=== PATIENT | male | born 1970 | race Caucasian/White ===

== ENCOUNTER 2017-05-30 11:00 | Outpatient (CLI) | payer MEDICAID ==
--- NOTE | 2017-05-30 16:29 | Mammography Report ---
DATE OF SERVICE: 05/30/2017 DIGITAL DIAGNOSTIC BILATERAL MAMMOGRAM: 05/30/2017 CLINICAL INDICATION: Right breast pain. TECHNIQUE: Bilateral CC and MLO views. Markers were placed at the site of maximal tenderness in the right periareolar breast. This is the patient's baseline mammogram. FINDINGS: The breasts demonstrate fatty replacement bilaterally. There is mild asymmetric gynecomastia in the right retroareolar region. No suspicious masses, clustered microcalcifications, or regions of architectural distortion are identified. IMPRESSION: BENIGN FINDINGS, WITH ASYMMETRIC GYNECOMASTIA. RECOMMENDATION: CONTINUED CLINICAL SURVEILLANCE. BIRADS CATEGORY 2-BENIGN FINDINGS. STANDARD QUALIFYING STATEMENTS: 1. This examination was reviewed with the aid of Computer-Aided Detection (CAD). 2. A negative or benign imaging report should not delay biopsy if clinically suspicious findings are present. Consider surgical consultation if warranted. More than 5% of cancers are not identified by imaging. 3. Dense breasts may obscure an underlying neoplasm. TD: 05/30/2017 17:28
== END 2017-05-30 11:01 | disposition home or self-care (01) ==
LOC: DI 11:00
PROVIDERS: ATTEND Family Medicine
DX: N62 Hypertrophy of breast (principal)
CPT/HCPCS: 77066

== ENCOUNTER 2018-07-29 09:29 | Outpatient (CLI) | payer MEDICAID | END 2018-07-29 09:30 | disposition home or self-care (01) | LOC: LAB.F 09:29 | PROVIDERS: ATTEND Registered Nurse | DX: R53.83 Other fatigue (principal) | CPT/HCPCS: 36415; 84403 ==

== ENCOUNTER 2018-09-29 07:34 | Outpatient (CLI) | payer BC, MEDICAID | END 2018-09-29 07:35 | disposition home or self-care (01) | LOC: LAB.F 07:34 | PROVIDERS: ATTEND Registered Nurse | DX: R53.83 Other fatigue (principal) | CPT/HCPCS: 36415; 84403 ==

== ENCOUNTER 2019-01-22 07:44 | Outpatient (CLI) | payer BC, MEDICAID ==
--- NOTE | 2019-01-22 17:40 | XRAY Report ---
Reason: FOOT DROP LT M21.372 Procedure Date: 01/22/2019 Accession Number: [id number] / [id number] Procedure: XRS - Foot 3 View LT CPT Code: FULL RESULT: EXAM: LEFT FOOT RADIOGRAPHY EXAM DATE: 01/22/2019 07:53 AM. CLINICAL HISTORY: FOOT DROP LT M21. 372. Left foot swelling, purple toes. COMPARISON: None. TECHNIQUE: 3 views. FINDINGS: Bones: Tiny plantar calcaneal spur. No fractures or bone lesions. Joints: Normal. No subluxations. Soft Tissues: Normal. No soft tissue swelling. IMPRESSION: Negative left foot radiography. RADIA
== END 2019-01-22 07:45 | disposition home or self-care (01) ==
LOC: DI.S 07:44
PROVIDERS: ATTEND Family Medicine
DX: M21.372 Foot drop, left foot (principal)

== ENCOUNTER 2020-06-23 11:55 | Outpatient (CLI) | payer BC, MEDICAID ==
[2020-06-23 15:41] LABS: BASOPHILS # (AUTO) 0.1 10^3/uL (0.0-0.1); BASOPHILS % (AUTO) 1.3 %; EOSINOPHILS # (AUTO) 0.2 10^3/uL (0.0-0.7); EOSINOPHILS % (AUTO) 2.7 %; HGB - HEMOGLOBIN 15.6 g/dL (14.0-18.0); MEAN CORPUSCULAR HEMOGLOBIN 30.8 pg (27.0-31.0); MEAN CORPUSCULAR HGB CONC 34.7 g/dL (32.0-36.0); MEAN CORPUSCULAR VOLUME 88.7 fL (80.0-94.0); MEAN PLATELET VOLUME 10.4 fL (7.4-11.4); MONOCYTES # (AUTO) 0.6 10^3/uL (0.0-1.0); MONOCYTES % (AUTO) 7.5 %; NEUTROPHILS # (AUTO) 4.2 10^3/uL (1.5-6.6); NEUTROPHILS % (AUTO) 51.1 %; PLT - PLATELET COUNT 283 10^3/uL (130-450); RED BLOOD COUNT 5.06 10^6/uL (4.70-6.10); RED CELL DISTRIBUTION WIDTH 12.4 % (12.0-15.0); WHITE BLOOD COUNT 8.2 x10^3/uL (4.8-10.8)
[2020-06-23 16:06] LABS: ALBUMIN/GLOBULIN RATIO 1.6 (1.0-2.2); ALKALINE PHOSPHATASE 70 IU/L (42-121); ALT ALANINE AMINOTRANSFERASE 62 IU/L (10-60); AST ASPARTATE AMINOTRANSFERASE 38 IU/L (10-42); BILIRUBIN,TOTAL 1.1 mg/dL (0.2-1.0); BUN - BLOOD UREA NITROGEN 13 mg/dL (6-20); CALCIUM 9.7 mg/dL (8.5-10.3); CARBON DIOXIDE - CO2 27 mmol/L (21-32); CHLORIDE 100 mmol/L (101-111); CHOL/HDL RATIO 5.4 (<5.0); CHOLESTEROL 199 mg/dL; CREATININE 0.9 mg/dL (0.6-1.2); GLUCOSE 155 mg/dL (70-100); HDL CHOLESTEROL 37 mg/dL; LDL CHOLESTEROL,CALCULATED 88 mg/dL; LDL/HDL RATIO 2.4 (<3.6); TOTAL PROTEIN 8.2 g/dL (6.7-8.2); VLDL CHOLESTEROL 74 mg/dL
[2020-06-23 20:31] LABS: HEMOGLOBIN A1c% 7.2 % (4.27-6.07)
== END 2020-06-23 11:56 | disposition home or self-care (01) ==
LOC: LAB 11:55
PROVIDERS: ATTEND Registered Nurse
DX: K76.0 Fatty (change of) liver, not elsewhere classified (principal); Z12.5 Encounter for screening for malignant neoplasm of prostate; R53.83 Other fatigue; E78.1 Pure hyperglyceridemia; E11.9 Type 2 diabetes mellitus without complications; I88.9 Nonspecific lymphadenitis, unspecified
CPT/HCPCS: 36415; 80053; 80061; 81599; 82043; 83036; 83721; 84153; 84403; 84443; 85025; 86308

== ENCOUNTER 2020-07-14 09:20 | Outpatient (CLI) | payer BC, MEDICAID ==
[2020-07-14 15:51] LABS: CREATININE,URINE 96.7 mg/dL; MICROALBUM/CREATININE RATIO,UR 9.3 ug/mg (<30.0); MICROALBUMIN,URINE 0.9 mg/dL (0-300.0)
== END 2020-07-14 09:21 | disposition home or self-care (01) ==
LOC: LAB.S 09:20
PROVIDERS: ATTEND Registered Nurse
DX: R53.83 Other fatigue (principal); E11.9 Type 2 diabetes mellitus without complications; E78.1 Pure hyperglyceridemia; K76.0 Fatty (change of) liver, not elsewhere classified
CPT/HCPCS: 82043; 82570

== ENCOUNTER 2021-04-10 12:34 | Emergency (ER) | payer BC, MEDICAID ==
--- NOTE | 2021-04-10 13:17 | ED Physician Documentation ---
PD HPI DYSPNEA - Stated complaint Stated Complaint: C+ BODY ACHE/FEVER - History obtained from History obtained from: Patient (50-year-old gentleman with history of type 2 diabetes and obesity became sick 2 days ago with fevers, chills, body aches, headache. There is no associated shortness of breath. His got ill at the same time. She tested positive for Covid with an antigen test. He is not short of breath.) Review of Systems Constitutional: reports: Fever, Chills, Myalgias, Fatigue Nose: reports: Rhinorrhea / runny nose Cardiac: denies: Chest pain / pressure, Palpitations Respiratory: reports: Cough. denies: Dyspnea PD PAST MEDICAL HISTORY - Past Medical History Endocrine/Autoimmune: Type 2 diabetes - Past Surgical History Past Surgical History: No - Present Medications Home Medications: Ambulatory Orders Medication Instructions Recorded Confirmed Gabapentin 900 mg PO DAILY 10/28/14 10/28/14 glipiZIDE [Glipizide] 10 mg PO BID 10/28/14 10/28/14 metFORMIN [Glucophage] 500 mg PO BID 10/28/14 10/28/14 Ibuprofen [Motrin] 800 mg PO Q8H PRN #30 tablet 10/29/14 Ondansetron Odt [Zofran] 4 mg TL Q6H PRN #10 tablet 10/29/14 Oxycodone HCl/Acetaminophen 1 - 2 each PO Q6H PRN #15 tablet 10/29/14 [Percocet 5-325 mg Tablet] Tamsulosin [Flomax] 0.4 mg PO DAILY #5 capsule 10/29/14 - Allergies Allergies/Adverse Reactions: Allergies Allergy/AdvReac Type Severity Reaction Status Date / Time lisinopril AdvReac Unknown Verified 04/10/21 13:24 - Social History Does the pt smoke?: No Smoking Status: Never smoker Does the pt drink ETOH?: No Does the pt have substance abuse?: No - Immunizations Immunizations are current?: Yes - POLST Patient has POLST: No PD ED PE NORMAL - Vitals Vital signs reviewed: Yes - General General: Alert and oriented X 3, No acute distress - Cardiac Cardiac: RRR, No murmur - Respiratory Respiratory: No respiratory distress, Clear bilaterally - Abdomen Abdomen: Non tender - Neuro Neuro: Alert and oriented X 3, Normal speech Results - Vitals Vitals: Vital Signs - 24 hr 11/30/21 11/30/21 13:00 15:26 Temperature 37.4 C Heart Rate 106 H 103 H Respiratory 17 18 Rate Blood Pressure 130/85 H 130/87 H O2 Saturation 97 97 Oxygen O2 Source Room air - Labs Labs: Laboratory Tests 04/10/21 13:17 Nasal Adenovirus (PCR) NOT DETECTED Nasal B. parapertussis DNA (PCR) NOT DETECTED Nasal Coronavir 229E PCR NOT DETECTED Nasal Coronavir HKU1 PCR NOT DETECTED Nasal Coronavir NL63 PCR NOT DETECTED Nasal Coronavir OC43 PCR NOT DETECTED Nasal Enterovir/Rhinovir PCR NOT DETECTED Nasal Influenza B PCR NOT DETECTED Nasal Influenza A PCR NOT DETECTED Nasal Parainfluen 1 PCR NOT DETECTED Nasal Parainfluen 2 PCR NOT DETECTED Nasal Parainfluen 3 PCR NOT DETECTED Nasal Parainfluen 4 PCR NOT DETECTED Nasal RSV (PCR) NOT DETECTED Nasal B.pertussis DNA PCR NOT DETECTED Nasal C.pneumoniae (PCR) NOT DETECTED Dennis Human Metapneumo PCR NOT DETECTED Nasal M.pneumoniae (PCR) NOT DETECTED Nasal SARS-CoV-2 (PCR) DETECTED A PD MEDICAL DECISION MAKING - ED course ED course: Mab therapy for this patient with Covid was considered and discussed with the patient. The patient was provided the handout: ``Casirivimab plus Imdevimab Fact Sheet for Patients, Parents and Caregivers, and the information within was discussed with the patient. The patient was informed of alternatives prior to receiving Mab therapy. The patient was informed that these medications are unapproved drugs that are authorized for use under Emergency Use Authorization by the FDA. The patient will be monitored for at least 1 hour after infusion is complete. Departure - Departure Disposition: 01 Home, Self Care Clinical Impression: COVID-19 Condition: Good Instructions: ED Viral Syndrome Comments: You are seen today for Covid, confirmed positive. You need to quarantine for at least 12 more days per CDC guidelines. Return if worsening. You did receive Regeneron antibody therapy today. Forms: Activity restrictions
[2021-04-10 14:30] LABS: B. PARAPERTUSSIS- RESP PCR PAN NOT DETECTED; B. PERTUSSIS- RESP PCR PANEL NOT DETECTED; C. PNEUMONIAE- RESP PCR PANEL NOT DETECTED; CORONAVIRUS 229E-RESP PCR NOT DETECTED; CORONAVIRUS HKU1-RESP PCR NOT DETECTED; CORONAVIRUS NL63-RESP PCR NOT DETECTED; CORONAVIRUS OC43-RESP PCR NOT DETECTED; HUMAN METAPNEUMOVIRUS NOT DETECTED; INFLUENZA A- RESP PCR PANEL NOT DETECTED; INFLUENZA B - RESP PCR PANEL NOT DETECTED; M. PNEUMONIAE- RESP PCR PANEL NOT DETECTED; PARAINFLUENZA VIRUS 1 NOT DETECTED; PARAINFLUENZA VIRUS 2 NOT DETECTED; PARAINFLUENZA VIRUS 3 NOT DETECTED; PARAINFLUENZA VIRUS 4 NOT DETECTED; RHINOVIRUS/ENTEROVIRUS NOT DETECTED; RSV- RESP PCR PANEL NOT DETECTED
[2021-04-10 14:31] LABS: SARS-CoV-2 -RESP PCR PANEL DETECTED
[2021-04-10] MEDS ORDERED: ACETAMINOPHEN 325 MG TABLET PO STA (15:28)
[2021-04-10] MEDS ORDERED: CASIRIVIMAB/IMDEVIMAB 10 ML in SODIUM CHLORIDE 0.9% 50 ML IV ONE (15:30)
[2021-04-10 17:51] VITALS: BP 125/81
== END 2021-04-10 17:51 | disposition home or self-care (01) ==
LOC: ED 12:34
DX: U07.1 COVID-19 (principal); E11.9 Type 2 diabetes mellitus without complications; Z79.84 Long term (current) use of oral hypoglycemic drugs; E66.9 Obesity, unspecified; Z68.33 Body mass index [BMI] 33.0-33.9, adult
CPT/HCPCS: 0202U; 99284; A9270; J7040; M0243; Q0244

== ENCOUNTER 2021-09-13 10:29 | Outpatient (CLI) | payer MEDICAID ==
--- NOTE | 2021-09-13 11:13 | XRAY Report ---
PROCEDURE: Abdomen 2 View X-Ray INDICATIONS: HEMATOCHEZIA, GASTRITIS, ACUTE TECHNIQUE: 2 views of the abdomen were acquired. COMPARISON: FINDINGS: Surgical changes and devices: None. Bowel: No pneumoperitoneum. The bowel gas pattern is normal. Soft tissues: No masses; visualized solid organ contours appear normal in size. No suspicious abdom inal calcifications. Bones: No suspicious bony abnormalities. IMPRESSION: Normal study. Reviewed by: Leopoldo Story MD on 09/13/2021 11:11 AM PDT Approved by: Leopoldo Story MD on 09/13/2021 11:11 AM PDT Station ID: [id number]
[2021-09-13 14:37] LABS: BASOPHILS # (AUTO) 0.1 10^3/uL (0.0-0.1); BASOPHILS % (AUTO) 0.7 %; EOSINOPHILS # (AUTO) 0.1 10^3/uL (0.0-0.7); EOSINOPHILS % (AUTO) 1.2 %; HCT - HEMATOCRIT 44.1 % (42.0-52.0); HGB - HEMOGLOBIN 15.9 g/dL (14.0-18.0); LYMPHOCYTES # (AUTO) 2.4 10^3/uL (1.5-3.5); LYMPHOCYTES % (AUTO) 28.7 %; MEAN CORPUSCULAR HEMOGLOBIN 30.2 pg (27.0-31.0); MEAN CORPUSCULAR HGB CONC 36.1 g/dL (32.0-36.0); MEAN CORPUSCULAR VOLUME 83.7 fL (80.0-94.0); MEAN PLATELET VOLUME 10.7 fL (7.4-11.4); MONOCYTES # (AUTO) 0.6 10^3/uL (0.0-1.0); MONOCYTES % (AUTO) 6.8 %; NEUTROPHILS # (AUTO) 5.3 10^3/uL (1.5-6.6); NEUTROPHILS % (AUTO) 62.2 %; PLT - PLATELET COUNT 251 10^3/uL (130-450); RED BLOOD COUNT 5.27 10^6/uL (4.70-6.10); RED CELL DISTRIBUTION WIDTH 12.4 % (12.0-15.0); WHITE BLOOD COUNT 8.5 x10^3/uL (4.8-10.8)
[2021-09-13 15:42] LABS: ALBUMIN 4.4 g/dL (3.2-5.5); ALBUMIN/GLOBULIN RATIO 1.4 (1.0-2.2); ALKALINE PHOSPHATASE 73 IU/L (42-121); ALT ALANINE AMINOTRANSFERASE 42 IU/L (10-60); AST ASPARTATE AMINOTRANSFERASE 28 IU/L (10-42); BILIRUBIN,TOTAL 1.3 mg/dL (0.2-1.0); BUN - BLOOD UREA NITROGEN 14 mg/dL (6-20); CALCIUM 9.6 mg/dL (8.5-10.3); CARBON DIOXIDE - CO2 25 mmol/L (21-32); CHLORIDE 101 mmol/L (101-111); CHOL/HDL RATIO 5.4 (<5.0); CHOLESTEROL 201 mg/dL; CREATININE 0.9 mg/dL (0.6-1.2); GFR - MDRD 90 (>89); GLUCOSE 247 mg/dL (70-100); HDL CHOLESTEROL 37 mg/dL; POTASSIUM 4.1 mmol/L (3.5-5.0); SODIUM 135 mmol/L (135-145); TOTAL PROTEIN 7.5 g/dL (6.7-8.2); TRIGLYCERIDES 555 mg/dL
[2021-09-13 15:52] LABS: THYROID STIMULATING HORMONE 1.02 uIU/mL (0.34-5.60)
[2021-09-13 16:01] LABS: LDL CHOLESTEROL,DIRECT 83 mg/dL; LDLD/HDL RATIO 2.2 (<3.6)
== END 2021-09-13 10:30 | disposition home or self-care (01) ==
LOC: DI.S 10:29
PROVIDERS: ATTEND Registered Nurse
DX: K92.1 Melena (principal); K29.00 Acute gastritis without bleeding; E11.9 Type 2 diabetes mellitus without complications; E78.1 Pure hyperglyceridemia; Z12.5 Encounter for screening for malignant neoplasm of prostate; Z13.29 Encounter for screening for other suspected endocrine disorder; Z13.0 Encounter for screening for diseases of the blood and blood-forming organs and certain disorders involving the immune mechanism; E29.1 Testicular hypofunction
CPT/HCPCS: 36415; 80053; 80061; 83721; 84153; 84403; 84443; 85025; 87040

== ENCOUNTER 2021-09-14 08:00 | Outpatient (CLI) | payer MEDICAID | END 2021-09-14 23:59 | disposition home or self-care (01) | LOC: LAB.S 08:00 | PROVIDERS: ATTEND Registered Nurse | DX: K92.1 Melena (principal); K29.00 Acute gastritis without bleeding | CPT/HCPCS: 87045; 87046; 87177; 87328; 87427 ==

== ENCOUNTER 2021-09-26 11:37 | Emergency (ER) | payer MEDICAID, OTHER ==
--- OUTSIDE RECORDS SUMMARY | 2021-09-26 12:21 | EXTERNAL MEDICAL SUMMARY RPT | Continuity of Care Document ---
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 Encounters No information. Medications date description facility [id number] sulfamethoxazole-trimethoprim [facility] [id number] testosterone cypionate [facility] [id number] atorvastatin [facility] Prim javon [facility] Problems date description facility [id number] X-RAY EXAM ABDOMEN 2 VIEWS [facility] [id number] Tobacco use and exposure [facility] [id number] Thyroid disorder screening [facility] [id number] Testosterone, Serum (Total) Walk-In in [facility] Services [facility] [id number] Tenderness of right iliac fossa [facility] [id number] TSH WITH REFLEX TO FT4 [facility] [id number] Screening for thyroid disorders [facility] [id number] Screening for other and unspecified Wa lk-In Clinic Primary Care & deficiency anemia Ancillary Services [facility] [id number] Screening for malignant neoplasms of W alk-In Clinic Primary Care & prostate Ancillary Services [facility] [id number] Screening for malignant neoplasm of Wa [facility]In [facility] Primary Care & prostate Ancillary Services [facility] [id number] STOOL FOR O&P [facility] Prim javon Care & Ancillary Services [facility] 20210913 Right lower quadrant abdominal [facility] Primary Care & tenderness Ancillary Services [facility] [id number] Photosensitivity [facility] Prim javon Care & Ancillary Services [facility] 20210913 PSA, SCREENING [facility] Prim javon Care & Ancillary Services [facility] [id number] Other specified disorders of eye and W alk-In Clinic Primary Care & adnexa Ancillary Services [facility] 20210913 Other specified acute skin changes due [facility] Primary Care & to ultraviolet radiation Anc[facility] Servi [facility] [id number] Melena [facility] Care & Ancillary Services [facility] 20210913 LIPIDS SCREEN [facility] Care & Ancillary Services [facility] [id number] Hematochezia Walk-[facility] Care & Ancillary Services [facility] 20210913 Former smoker [facility] Care & Ancillary Services [facility] 20210913 Encounter for screening for other [facility] Primary Care & suspected endocrine disorder Ancillary S ervices [facility] [id number] Encounter for screening for malignant [facility] Primary Care & neoplasm of prostate [facility] 20210913 Encounter for screening for diseases of [facility] Primary Care & the blood and blood-forming organs and A ncillary Services [facility] certain disorders involving the immune mechanism 20210913 EGD flexible, transoral; diagnostic, W alk-In Clinic Primary Care & including collection of specimen(s) Anci ll[facility] [place] [id number] Details of drug misuse behavior [facility] 20210913 Culture, bact; stool, aerobic, addl Wa lk-In Clinic Primary Care & paths, isolation and presump isolates An cillary [facility] [place] [id number] COMPREHENSIVE METABOLIC PANEL [facility] 20210913 CBC W/Diff/Plt [facility] Care & Ancillary Services [facility] 20210913 Blood in stool [facility] Care & Ancillary Services [facility] 20210913 Blood Culture [facility] Care & Ancillary Services [facility] 20210913 Anemia screening [facility] Care & Ancillary Services [facility] 20210913 Alcohol use [facility] Care & Ancillary Services [facility] 20210913 Acute gastritis, without mention of Wa lk-In Clinic Primary Care & hemorrhage Ancillary Services [facility] 20210913 Acute gastritis [facility] Care & Ancillary Services [facility] 20210913 Acute gastritis without bleeding [facility] 20210913 Abdominal tenderness, right lower [facility] Primary Care & quadrant Ancillary Services shanel Procedures date description facility [id number] CBC W/Diff/Plt [facility] 20210913 PSA, SCREENING [facility] 20210913 LIPIDS SCREEN Walk[facility] & [facility] 20210913 COMPREHENSIVE METABOLIC PANEL Walk[facility]In [facility] 20210913 Testosterone, Serum (Total) Walk[facility] 20210913 Blood Culture Walk[facility]In [facility] & [facility] 20210913 TSH WITH REFLEX TO FT4 Walk[facility] Results test status date ordered by attending specimen jean-paul e THYROID_STIMULATING_HO unknown 20210913 unknown unknown unknown [facility] TSH unknown 20210913 unknown unknown unknown urea_nitrogen_blood unknown 20210913 unknown unknown unk nown Erythrocytes_volume_in unknown 20210913 unknown unknown unknown _Blood_by_Automated_cou nt Erythrocyte_distributi unknown 20210913 unknown unknown unknown on_width_Ratio_by_Autom ated_count MCV_Entitic_volume_by_ unknown 20210913 unknown unknown unknown Automated_count MCH_Entitic_mass_by_Au unknown 20210913 unknown unknown unknown tomated_count Platelets_volume_in_Bl unknown 20210913 unknown unknown unknown ood_by_Automated_count Platelet_mean_volume_E unknown 20210913 unknown unknown unknown ntitic_volume_in_Blood_ by_[facility] neutrophil_count_blood unknown 20210913 unknown unknown unknown monocyte_count_blood unknown 20210913 unknown unknown un known lymphocyte_count_blood unknown 20210913 unknown unknown unknown Hemoglobin_Mass_volume unknown 20210913 unknown unknown unknown _in_Blood eosinophil_count_blood unknown 20210913 unknown unknown unknown Basophils_volume_in_Bl unknown 20210913 unknown unknown unknown ood_by_Manual_count leukocyte_count_blood unknown 20210913 unknown unknown u nknown erythrocyte_RBC_count unknown 20210913 unknown unknown u nknown Leukocytes_volume_in_B unknown 20210913 unknown unknown unknown lood_by_Automated_count Glomerular_Filtration_ unknown 20210913 unknown unknown unknown rate platelet_count unknown 20210913 unknown unknown unknown hemoglobin_blood unknown 20210913 unknown unknown unknow n hematocrit_blood unknown 20210913 unknown unknown unknow n potassium_blood unknown 20210913 unknown unknown unknown Glomerular_filtration_r unknown 20210913 unknown unknown unknown ate_1.73_sq_M.predicted _among_non-blacks_Volum e_Rate_Area_in_Serum_Pl asma_or_Blood_by_Creati nine-based_formula_MDRD _ Hematocrit_Volume_Frac unknown 20210913 unknown unknown unknown tion_of_Blood_by_Automa ted_count triglyceride_serum_fas unknown 20210913 unknown unknown unknown ting bilirubin_serum_total unknown 20210913 unknown unknown u nknown alanine_aminotransfera unknown 20210913 unknown unknown unknown se_SGPT_serum carbon_dioxide_serum_t unknown 20210913 unknown unknown unknown otal aspartate_aminotransfe unknown 20210913 unknown unknown unknown rase_SGOT_serum prostate_specific_anti unknown 20210913 unknown unknown unknown gen protein_total_serum unknown 20210913 unknown unknown unk nown blood_glucose unknown 20210913 unknown unknown unknown potassium_blood unknown 20210913 unknown unknown unknown mean_corpuscular_volum unknown 20210913 unknown unknown unknown e_RBC Urea_nitrogen_Mass_vol unknown 20210913 unknown unknown unknown ume_in_Serum_or_Plasma globulin_serum unknown 20210913 unknown unknown unknown alkaline_phosphatase_s unknown 20210913 unknown unknown unknown trang Testosterone_Mass_volu unknown 20210913 unknown unknown unknown me_in_Serum_or_Plasma Sodium_Moles_volume_in unknown 20210913 unknown unknown unknown _Serum_or_Plasma Protein_Mass_volume_in unknown 20210913 unknown unknown unknown _Serum_or_Plasma Prostate_specific_Ag_M unknown 20210913 unknown unknown unknown ass_volume_in_Serum_or_ Plasma eosinophil_count_blood unknown 20210913 unknown unknown unknown anion_gap_serum unknown 20210913 unknown unknown unknown mean_platelet_volume unknown 20210913 unknown unknown un known testosterone_total unknown 20210913 unknown unknown unkn own HDL_cholesterol_serum unknown 20210913 unknown unknown u nknown Triglyceride_Mass_volu unknown 20210913 unknown unknown unknown me_in_Serum_or_Plasma_- _mg_dL basophil_count_blood unknown 20210913 unknown unknown un known monocyte_count_blood unknown 20210913 unknown unknown un known lymphocyte_count_blood unknown 20210913 unknown unknown unknown neutrophil_count_blood unknown 20210913 unknown unknown unknown cholesterol_HDL_ratio_ unknown 20210913 unknown unknown unknown serum_percent Glucose_Mass_volume_in unknown 20210913 unknown unknown unknown _Serum_or_Plasma Globulin_Mass_volume_i unknown 20210913 unknown unknown unknown n_Serum Creatinine_Mass_volume unknown 20210913 unknown unknown unknown _in_Serum_or_Plasma cholesterol_HDL_ratio_ unknown 20210913 unknown unknown unknown serum_percent Cholesterol_Mass_volum unknown 20210913 unknown unknown unknown e_in_Serum_or_Plasma_-_ mg_dL Cholesterol_in_HDL_Mas unknown 20210913 unknown unknown unknown s_volume_in_Serum_or_Pl asma_-_mg_dL Chloride_Moles_volume_ unknown 20210913 unknown unknown unknown in_Serum_or_Plasma carbon_dioxide_serum_t unknown 20210913 unknown unknown unknown otal Calcium_Moles_volume_i unknown 20210913 unknown unknown unknown n_Serum_or_Plasma albumin_serum unknown 20210913 unknown unknown unknown Bilirubin.total_Mass_v unknown 20210913 unknown unknown unknown olume_in_Serum_or_Plasm a Aspartate_aminotransfe unknown 20210913 unknown unknown unknown rase_Enzymatic_activity _volume_in_Serum_or_Pla sma Anion_gap_4_in_Serum_o unknown 20210913 unknown unknown unknown r_Plasma creatinine_serum unknown 20210913 unknown unknown unknow n Alkaline_phosphatase_E unknown 20210913 unknown unknown unknown nzymatic_activity_volum e_in_Blood Albumin_Globulin_Mass_ unknown 20210913 unknown unknown unknown Ratio_in_Serum_or_Plasm a Albumin_Mass_volume_in unknown 20210913 unknown unknown unknown _Serum_or_Plasma Alanine_aminotransfera unknown 20210913 unknown unknown unknown se_Enzymatic_activity_v olume_in_Serum_or_Plasm a mean_corpuscular_hemog unknown 20210913 unknown unknown unknown lobin_concentration_rbc sodium_serum unknown 20210913 unknown unknown unknown albumin_globulin_ratio unknown 20210913 unknown unknown unknown _serum cholesterol_serum unknown 20210913 unknown unknown unkno wn chloride_serum unknown 20210913 unknown unknown unknown Thyrotropin_Units_volu unknown 20210913 unknown unknown unknown me_in_Serum_or_Plasma_b y_Detection_limit_lt_0. 05_mIU_L calcium_serum unknown [id number] unknown unknown unknown mean_corpuscular_hemog unknown [id number] unknown unknown unknown lobin_RBC red_blood_cell_distrib unknown 98252369 unknown unknown unknown ution_width T unknown 01514914 unknown unknown unknown T unknown 06367845 unknown unknown unknown T unknown 55662409 unknown unknown unknown T unknown 64277359 unknown unknown unknown T unknown 80538007 unknown unknown unknown T unknown 40263380 unknown unknown unknown T unknown 92620533 unknown unknown unknown T unknown 78206178 unknown unknown unknown T unknown 45052035 unknown unknown unknown T unknown 24335875 unknown unknown unknown NEUTROPHILS_AUTO_ unknown 11450885 unknown unknown unkno wn T unknown 77195279 unknown unknown unknown T unknown 99638885 unknown unknown unknown T unknown 02482496 unknown unknown unknown MONOCYTES_AUTO_ unknown 53314653 unknown unknown unknown T unknown 98123275 unknown unknown unknown T unknown 34241455 unknown unknown unknown T unknown 85245166 unknown unknown unknown T unknown 67929562 unknown unknown unknown LYMPHOCYTES_AUTO_ unknown 19430918 unknown unknown unkno wn T unknown 67229917 unknown unknown unknown T unknown 38372619 unknown unknown unknown T unknown 34618472 unknown unknown unknown T unknown 77545597 unknown unknown unknown T unknown 52042566 unknown unknown unknown T unknown 09473015 unknown unknown unknown T unknown 92119917 unknown unknown unknown T unknown 46526075 unknown unknown unknown GFR_-_MDRD unknown 22949183 unknown unknown unknown T unknown 73560533 unknown unknown unknown EOSINOPHILS_AUTO_ unknown 78632541 unknown unknown unkno wn T unknown 15180932 unknown unknown unknown T unknown 28243927 unknown unknown unknown T unknown 97421678 unknown unknown unknown T unknown 04817844 unknown unknown unknown T unknown 31938147 unknown unknown unknown T unknown 95498109 unknown unknown unknown CHOL_HDL_RATIO unknown 52458016 unknown unknown unknown T unknown 02634319 unknown unknown unknown T unknown 76854955 unknown unknown unknown BILIRUBIN_TOTAL unknown 27832974 unknown unknown unknown BASOPHILS_AUTO_ unknown 70872389 unknown unknown unknown T unknown 02664036 unknown unknown unknown T unknown 60526825 unknown unknown unknown T unknown 74127266 unknown unknown unknown T unknown 10990131 unknown unknown unknown ALT_ALANINE_AMINOTRANS unknown 39364619 unknown unknown unknown FERASE ALKALINE_PHOSPHATASE unknown 20021553 unknown unknown un known T unknown 80757413 unknown unknown unknown T unknown 20210913 unknown unknown unknown ALBUMIN_GLOBULIN_RATIO unknown 20210913 unknown unknown unknown facility observation status value reference units lab code abn ormal line range notes [facility] THYROID_STIM unknown 0.0010 unknown m[iU]/ rTSH unknow n unknown Clinic ULATING_HORMO 2 mL Primary [place] [facility] TSH unknown 0.0010 unknown m[iU]/ _90820 unknown unk nown Clinic 2 mL [facility] urea_nitroge unknown 14 unknown mg/dL _9 unknow n unknown Clinic n_blood [facility] Erythrocytes unknown 5.27 unknown _789-8 unknow n unknown Clinic _volume_in_Bl 10 6/UL Primary ood_by_Automa Care & ted_count Ancillary Services [facility] Erythrocyte_ unknown 12.4 unknown % _788-0 unknow n unknown Clinic distribution_ Primary width_Ratio_b Care & y_Automated_c Ancillary ount Services [facility] MCV_Entitic_ unknown 83.7 unknown fL _787-2 unknow n unknown Clinic volume_by_Aut Primary omated_count Care & Ancillary Services [facility] MCH_Entitic_ unknown 30.2 unknown pg _785-6 unknow n unknown Clinic mass_by_Autom Primary ated_count Care & Ancillary Services [facility] Platelets_vo unknown 251 10 unknown _777-3 unknow n unknown Clinic lume_in_Blood 3/UL Primary _by_Automated Care & _count Ancillary Services [facility] Platelet_mea unknown 10.7 unknown fL _776-5 unknow n unknown Clinic n_volume_Enti Primary tic_volume_in Care & _Blood_by_Ree Ancillary s-Van Services [facility] neutrophil_c unknown 5.3 10 unknown _752-6 unknow n unknown Clinic ount_blood 3/UL Primary Care & [facility]illary [facility] monocyte_cou unknown 0.6 10 unknown _743-5 unknow n unknown Clinic nt_blood 3/UL Primary [facility] lymphocyte_c unknown 2.4 10 unknown _732-8 unknow n unknown Clinic ount_blood 3/UL Primary [facility] Hemoglobin_M unknown 15.9 unknown g/dL _718-7 unknow n unknown Clinic ass_volume_in Primary _Blood Care & Ancillary Services [facility] eosinophil_c unknown 0.1 10 unknown _712-0 unknow n unknown Clinic ount_blood 3/UL Primary [facility] Basophils_vo unknown 0.1 10 unknown _705-4 unknow n unknown Clinic lume_in_Blood 3/UL Primary _by_Manual_co Care & unt [facility]illary [facility] leukocyte_co unknown 8.5 unknown _68 unknow n unknown Clinic unt_blood X10 Primary 3/UL Care & Ancillary Services [facility] erythrocyte_ unknown 5.27 unknown _67 unknow n unknown Clinic RBC_count 10 6/UL Primary Care [facility] Leukocytes_v unknown 8.5 unknown _6690-2 unkno wn unknown Clinic olume_in_Bloo X10 Primary d_by_Automate 3/UL Care & d_count Ancillary Services [facility] Glomerular_F unknown 90 unknown mL/min _66455 unknow n unknown Clinic iltration_rat Primary e Care & Anc[facility] platelet_cou unknown 251 10 unknown _66 unknow n unknown Clinic nt 3/UL Primary [facility] hemoglobin_b unknown 15.9 unknown g/dL _65 unknow n unknown Clinic lood [facility] hematocrit_b unknown 44.1 unknown % _64 unknow n unknown Clinic lood [facility] potassium_bl unknown 4.1 unknown meq/L _6298-4 unkno wn unknown Clinic ood [facility] Glomerular_fi unknown 90 unknown mL/min _48642-3 unkn own unknown Clinic ltration_rate Primary _1.73_sq_M.pr Care & edicted_among Ancillary _non-blacks_V Services olume_Rate_Ar [facility] ea_in_Serum_P lasma_or_Bloo d_by_Creatini ne-based_form ula_MDRD_ Walk-In Hematocrit_V unknown 44.1 unknown % _4544-3 unkno wn unknown Clinic olume_Fractio Primary n_of_Blood_by Care & _Automated_co Ancillary unt Services [facility] triglyceride unknown 555 unknown mg/dL _44 unknow n unknown Clinic _serum_fastin Primary g Care & Ancillary [facility] bilirubin_se unknown 1.3 unknown mg/dL _43 unknow n unknown Clinic rum_total Primary Care & Anc[facility] alanine_amin unknown 42 unknown U/L _40 unknow n unknown Clinic otransferase_ Primary SGPT_serum Care & Ancillary Services [facility] carbon_dioxi unknown 25 unknown mmol/L _3962 unknow n unknown Clinic de_serum_tota Primary l Care & [facility] aspartate_am unknown 28 unknown U/L _39 unknow n unknown Clinic inotransferas Primary e_SGOT_serum Care & Ancillary Services [facility] prostate_spe unknown 0.285 unknown ng/mL _37 unknow n unknown Clinic cific_antigen Primary [facility] protein_tota unknown 7.5 unknown g/dL _36 unknow n unknown Clinic l_serum Primary [facility] blood_glucos unknown 247 unknown mg/dL _3565 unknow n unknown Clinic e Primary [facility] potassium_bl unknown 4.1 unknown meq/L _3483 unknow n unknown Clinic ood Primary [facility] mean_corpusc unknown 83.7 unknown fL _315 unknow n unknown Clinic ular_volume_R Primary BC Care & Ancillary Services [facility] Urea_nitroge unknown 14 unknown mg/dL _3094-0 unkno wn unknown Clinic n_Mass_volume Primary _in_Serum_or_ Care & Plasma Ancillary Services [facility] globulin_ser unknown 3.1 unknown _3059 unknow n unknown Clinic um Primary [facility] alkaline_pho unknown 73 unknown U/L _3 unknow n unknown Clinic sphatase_seru Primary m Care & Ancillary Services [facility] Testosterone unknown 198 unknown ng/dL _2986-8 unkno wn unknown Clinic _Mass_volume_ Primary in_Serum_or_P Care & lasma Ancillary Services [facility] Sodium_Moles unknown 135 unknown mmol/L _2951-2 unkno wn unknown Clinic _volume_in_Se Primary rum_or_Plasma Care & Ancillary Services [facility] Protein_Mass unknown 7.5 unknown g/dL _2885-2 unkno wn unknown Clinic _volume_in_Se Primary rum_or_Plasma Care & Ancillary Services [facility] Prostate_spe unknown 0.285 unknown ng/mL _2857-1 unkno wn unknown Clinic cific_Ag_Mass Primary _volume_in_Se Care & rum_or_Plasma Ancillary Services [facility] eosinophil_c unknown 0.1 10 unknown _285 unknow n unknown Clinic ount_blood 3/UL Primary Care & Ancillary [facility] anion_gap_se unknown 9.0 unknown _279 unknow n unknown Clinic rum [facility] mean_platele unknown 10.7 unknown fL _2784 unknow n unknown Clinic t_volume Primary [facility] testosterone unknown 198 unknown ng/dL _273 unknow n unknown Clinic _total Primary [facility] HDL_choleste unknown 37 unknown mg/dL _26 unknow n unknown Clinic rol_serum Primary [facility] Triglyceride unknown 555 unknown mg/dL _2571-8 unkno wn unknown Clinic _Mass_volume_ Primary in_Serum_or_P Care & lasma_-_mg_dL Ancillary Services [facility] basophil_cou unknown 0.1 10 unknown _2427 unknow n unknown Clinic nt_blood 3/UL Primary Care & [facility] monocyte_cou unknown 0.6 10 unknown _2422 unknow n unknown Clinic nt_blood 3/UL Primary [facility] lymphocyte_c unknown 2.4 10 unknown _2420 unknow n unknown Clinic ount_blood 3/UL Primary Care & [facility] neutrophil_c unknown 5.3 10 unknown _2418 unknow n unknown Clinic ount_blood 3/UL Primary [facility] cholesterol_ unknown 5.4 unknown _2404 unknow n unknown Clinic HDL_ratio_ser Primary um_percent Care & Ancillary Services [facility] Glucose_Mass unknown 247 unknown mg/dL _2344-11 unkno wn unknown Clinic _volume_in_Se Primary rum_or_Plasma Care & Ancillary Services [facility] Globulin_Mas unknown 3.1 unknown _2335-10 unkno wn unknown Clinic s_volume_in_S Primary trang Care & Ancillary Services [facility] Creatinine_M unknown 0.9 unknown mg/dL _ unkno wn unknown Clinic ass_volume_in Primary _Serum_or_Pla Care & sma Ancillary Services [facility] cholesterol_ unknown 5.4 unknown _2094-12 unkno wn unknown Clinic HDL_ratio_ser Primary um_percent Care & Ancillary Services [facility] Cholesterol_ unknown 201 unknown mg/dL _2092-07 unkno wn unknown Clinic Mass_volume_i Primary n_Serum_or_Pl Care & asma_-_mg_dL Ancillary Services [facility] Cholesterol_ unknown 37 unknown mg/dL _2085-01 unkno wn unknown Clinic in_HDL_Mass_v Primary olume_in_Seru Care & m_or_Plasma_- Ancillary _mg_dL Services [facility] Chloride_Mol unknown 101 unknown mmol/L _ unkno wn unknown Clinic es_volume_in_ Primary Serum_or_Plas Care & ma Ancillary Services [facility] carbon_dioxi unknown 25 unknown mmol/L _2028-01 unkno wn unknown Clinic de_serum_tota Primary l Care & Ancillary Services [facility] Calcium_Mole unknown 9.6 unknown mg/dL _1999-12 unkno wn unknown Clinic s_volume_in_S Primary erum_or_Plasm Care & a Ancillary Services [facility] albumin_seru unknown 4.4 unknown g/dL _2 unknow n unknown Clinic m Primary Care & [facility] Bilirubin.to unknown 1.3 unknown mg/dL _1974-06 unkno wn unknown Clinic tal_Mass_volu Primary me_in_Serum_o Care & r_Plasma Ancillary Services [facility] Aspartate_am unknown 28 unknown U/L _1919-12 unkno wn unknown Clinic inotransferas Primary e_Enzymatic_a Care & ctivity_volum Ancillary e_in_Serum_or Services _Plasma [facility] Anion_gap_4_ unknown 9.0 unknown _1863-0 unkno wn unknown Clinic in_Serum_or_P Primary lasma Care & Ancillary Services [facility] creatinine_s unknown 0.9 unknown mg/dL _18 unknow n unknown Clinic trang Primary Care & Ancillary Services [facility] Alkaline_pho unknown 73 unknown U/L _1783-0 unkno wn unknown Clinic sphatase_Enzy Primary matic_activit Care & y_volume_in_B [facility] Albumin_Glob unknown 1.4 unknown _1759-0 unkno wn unknown Clinic ulin_Mass_Rat Primary io_in_Serum_o Care & r_Plasma [facility] Albumin_Mass unknown 4.4 unknown g/dL _1751-7 unkno wn unknown Clinic _volume_in_Se Primary rum_or_Plasma [facility] Alanine_amin unknown 42 unknown U/L _1742-6 unkno wn unknown Clinic otransferase_ Primary Enzymatic_act Care & ivity_volume_ Ancillary in_Serum_or_P Services lasma [facility] mean_corpusc unknown 36.1 unknown g/dL _17029 unknow n unknown Clinic ular_hemoglob Primary in_concentrat Care & ion_rbc [facility] sodium_serum unknown 135 unknown mmol/L _159 unknow n unknown Clinic [facility] albumin_glob unknown 1.4 unknown _146 unknow n unknown Clinic ulin_ratio_se Primary rum [facility] cholesterol_ unknown 201 unknown mg/dL _14 unknow n unknown Clinic serum [facility] chloride_ser unknown 101 unknown mmol/L _13 unknow n unknown Clinic um [facility] Thyrotropin_ unknown 0.0010 unknown m[iU]/ _11579-0 unkn own unknown Clinic Units_volume_ 2 mL Primary in_Serum_or_P Care & lasma_by_Dete Ancillary ction_limit_l Services t_0.05_mIU_L [facility] calcium_seru unknown 9.6 unknown mg/dL _11 unknow n unknown Clinic m [facility] mean_corpusc unknown 30.2 unknown pg _1031 unknow n unknown Clinic ular_hemoglob Primary in_RBC [facility] red_blood_ce unknown 12.4 unknown % _1030 unknow n unknown Clinic ll_distributi Primary on_width [facility] T unknown 8.5 unknown WBC unknown [facility] X10 Primary 3/UL [facility] T unknown 0.0010 unknown m[iU]/ TSH unknown [facility] 2 mL [facility] T unknown 555 unknown mg/dL TRIG unknown [facility] T unknown 1.3 unknown mg/dL TOTAL_BI unknown u [facility] LI [facility] T unknown 198 unknown ng/dL TESTO unknown [facility] T unknown 12.4 unknown % RDW unknown [facility] T unknown 5.27 unknown RBC unknown [facility] 10 6/UL [facility] T unknown 0.285 unknown ng/mL PSA_SCRE unknown u [facility] EN [facility] T unknown 7.5 unknown g/dL PRO_TOTA unknown u [facility] L [facility] T unknown 251 10 unknown PLT unknown [facility] 3/UL [facility] NEUTROPHILS_ unknown 5.3 10 unknown NE_ unknow n unknown Clinic AUTO_ 3/UL [facility] T unknown 5.3 10 unknown NEUT_AUT unknown u [facility] 3/UL O_ [facility] T unknown 135 unknown mmol/L NA unknown [facility] T unknown 10.7 unknown fL MPV unknown [facility] MONOCYTES_AU unknown 0.6 10 unknown MO_ unknow n unknown Clinic TO_ 3/UL [facility] T unknown 0.6 10 unknown MONO_AUT unknown u [facility] 3/UL O_ [facility] T unknown 83.7 unknown fL MCV unknown [facility] T unknown 36.1 unknown g/dL MCHC unknown [facility] T unknown 30.2 unknown pg MCH unknown [facility] LYMPHOCYTES_ unknown 2.4 10 unknown LY_ unknow n unknown Clinic AUTO_ 3/UL [facility] T unknown 2.4 10 unknown LYMPH_AU unknown u [facility] 3/UL TO_ [facility] T unknown 4.1 unknown meq/L K unknown [facility] T unknown 15.9 unknown g/dL HGB unknown [facility] T unknown 37 unknown mg/dL HDL unknown [facility] T unknown 44.1 unknown % HCT unknown [facility] T unknown 247 unknown mg/dL GLU unknown [facility] T unknown 3.1 unknown GLOB unknown [facility] T unknown 90 unknown mL/min GFR_-_MD unknown u [facility] RD [facility] GFR_-_MDRD unknown 90 unknown mL/min GFR unknown unknown Clinic [facility] T unknown 9.0 unknown GAP unknown [facility] EOSINOPHILS_ unknown 0.1 10 unknown EO_ unknow n unknown Clinic AUTO_ 3/UL [facility] T unknown 0.1 10 unknown EOS_AUTO unknown u [facility] 3/UL _ [facility] T unknown 0.9 unknown mg/dL CREAT unknown [facility] T unknown 25 unknown mmol/L CO2 unknown [facility] T unknown 101 unknown mmol/L CL unknown [facility] T unknown 5.4 unknown CHOL_HDL unknown u [facility] Clinic _RATIO [facility] T unknown 201 unknown mg/dL CHOL unknown [facility] CHOL_HDL_RAT unknown 5.4 unknown CHLHDL unknow n unknown Clinic IO [facility] T unknown 9.6 unknown mg/dL CA unknown [facility] T unknown 14 unknown mg/dL BUN unknown [facility] BILIRUBIN_TO unknown 1.3 unknown mg/dL BILIT unknow n unknown Clinic LULU [facility] BASOPHILS_AU unknown 0.1 10 unknown BA_ unknow n unknown Clinic TO_ 3/UL [facility] T unknown 0.1 10 unknown BASO_AUT unknown u [facility] 3/UL O_ [facility] T unknown 1.4 unknown A_G_RATI unknown u [facility] O [facility] T unknown 28 unknown U/L AST unknown [facility] T unknown 42 unknown U/L ALT_SGPT unknown u [facility] _ [facility] ALT_ALANINE_ unknown 42 unknown U/L ALT unknow n unknown Clinic AMINOTRANSFER Primary ASE [facility] & [facility] ALKALINE_PHO unknown 73 unknown U/L ALP unknow n unknown Clinic SPHATASE [facility] T unknown 73 unknown U/L ALK_PHOS unknown u [facility] T unknown 4.4 unknown g/dL ALB unknown [facility] ALBUMIN_GLOB unknown 1.4 unknown AGRATIO unkno wn unknown Clinic ULIN_RATIO [facility] Vital Signs date measurement value source 20210913 weight_standard 233.5 lb [id number] weight_metric 105.91 kg 20210913 temperature_standard 98.5 F [id number] temperature_metric 36.94 C 20210913 respiration_rate 16 /min [id number] height_standard 70.25 in [id number] height_metric 178.44 cm [id number] heart_rate 87 /min [id number] BP_systolic 132 mm[Hg] 20210913 BP_diastolic 88 mm[Hg] 20210913 BMI 33.39 kg/m2
[2021-09-26 12:30] LABS: BASOPHILS # (AUTO) 0.1 10^3/uL (0.0-0.1); BASOPHILS % (AUTO) 1.3 %; EOSINOPHILS # (AUTO) 0.1 10^3/uL (0.0-0.7); EOSINOPHILS % (AUTO) 1.7 %; HCT - HEMATOCRIT 43.4 % (42.0-52.0); HGB - HEMOGLOBIN 15.9 g/dL (14.0-18.0); LYMPHOCYTES # (AUTO) 3.1 10^3/uL (1.5-3.5); LYMPHOCYTES % (AUTO) 40.5 %; MEAN CORPUSCULAR HEMOGLOBIN 30.3 pg (27.0-31.0); MEAN CORPUSCULAR HGB CONC 36.6 g/dL (32.0-36.0); MEAN CORPUSCULAR VOLUME 82.7 fL (80.0-94.0); MONOCYTES # (AUTO) 0.6 10^3/uL (0.0-1.0); MONOCYTES % (AUTO) 8.1 %; NEUTROPHILS # (AUTO) 3.6 10^3/uL (1.5-6.6); PLT - PLATELET COUNT 267 10^3/uL (130-450); RED BLOOD COUNT 5.25 10^6/uL (4.70-6.10); RED CELL DISTRIBUTION WIDTH 12.4 % (12.0-15.0); WHITE BLOOD COUNT 7.5 x10^3/uL (4.8-10.8)
[2021-09-26 12:46] LABS: ALBUMIN/GLOBULIN RATIO 1.6 (1.0-2.2); BILIRUBIN,TOTAL 1.1 mg/dL (0.2-1.0); CALCIUM 9.6 mg/dL (8.5-10.3); POTASSIUM 4.3 mmol/L (3.5-5.0); TOTAL PROTEIN 8.1 g/dL (6.7-8.2)
--- NOTE | 2021-09-26 16:56 | ED Physician Documentation ---
PD HPI ABD PAIN - Stated complaint Stated Complaint: UPPER ABD PX - Chief complaint Chief Complaint: Abd Pain - History obtained from History obtained from: Patient - Additional information Additional information: 51-year-old gentleman with history of type 2 diabetes had about 9 days of medium red blood per rectum that started about 2 weeks ago. Went away for a few days and then restarted over the last couple of days. He had blood work as an outpatient which was unremarkable. No history of GI bleeding prior to this. No history of ulcers. Never had a colonoscopy. Has some diffuse and upper abdominal pain associated with this. He does not have any bleeding when he is not having a bowel movement. Is mostly on the toilet paper. Bowel movements are otherwise normal. Review of Systems Constitutional: reports: Reviewed and negative Nose: reports: Reviewed and negative Throat: reports: Reviewed and negative PD PAST MEDICAL HISTORY - Past Medical History Endocrine/Autoimmune: Type 2 diabetes - Past Surgical History Past Surgical History: No - Present Medications Home Medications: Ambulatory Orders Medication Instructions Recorded Confirmed Gabapentin 900 mg PO DAILY 10/28/14 10/28/14 glipiZIDE [Glipizide] 10 mg PO BID 10/28/14 10/28/14 metFORMIN [Glucophage] 500 mg PO BID 10/28/14 10/28/14 Ibuprofen [Motrin] 800 mg PO Q8H PRN #30 tablet 10/29/14 Ondansetron Odt [Zofran] 4 mg TL Q6H PRN #10 tablet 10/29/14 Oxycodone HCl/Acetaminophen 1 - 2 each PO Q6H PRN #15 tablet 10/29/14 [Percocet 5-325 mg Tablet] Tamsulosin [Flomax] 0.4 mg PO DAILY #5 capsule 10/29/14 Omeprazole 40 mg PO DAILY #30 cap 09/26/21 - Allergies Allergies/Adverse Reactions: Allergies Allergy/AdvReac Type Severity Reaction Status Date / Time amoxicillin AdvReac Rash Verified 09/26/21 12:03 lisinopril AdvReac Unknown Verified 09/26/21 12:03 - Social History Does the pt smoke?: No Smoking Status: Never smoker Does the pt drink ETOH?: No Does the pt have substance abuse?: No - Immunizations Immunizations are current?: Yes - POLST Patient has POLST: No PD ED PE NORMAL - Vitals Vital signs reviewed: Yes - General General: Alert and oriented X 3, No acute distress - Abdomen Abdomen: Normal bowel sounds, Soft, Non tender - Rectal Rectal: Other (No external hemorrhoids) - Back Back: No CVA TTP, No spinal TTP - Neuro Neuro: Alert and oriented X 3, Normal speech Results - Vitals Vitals: Vital Signs - 24 hr 09/26/21 09/26/21 11:59 17:14 Temperature 36.0 C L 36.6 C Heart Rate 104 H 80 Respiratory 16 16 Rate Blood Pressure 148/117 H 134/103 H O2 Saturation 97 97 Oxygen O2 Source Room air - Labs Labs: Laboratory Tests 09/26/21 09/26/21 09/26/21 12:23 12:23 12:23 WBC 7.5 RBC 5.25 Hgb 15.9 Hct 43.4 MCV 82.7 MCH 30.3 MCHC 36.6 H RDW 12.4 Plt Count 267 MPV 10.0 Neut # (Auto) 3.6 Lymph # (Auto) 3.1 [place] # (Auto) 0.6 Eos # (Auto) 0.1 Baso # (Auto) 0.1 Absolute Nucleated RBC 0.00 Nucleated RBC % 0.0 Sodium 133 L Potassium 4.3 Chloride 99 L Carbon Dioxide 23 Anion Gap 11.0 BUN 13 Creatinine 1.0 Estimated GFR (MDRD) 79 L Glucose 220 H Calcium 9.6 Total Bilirubin 1.1 H AST 28 ALT 36 Alkaline Phosphatase 76 Total Protein 8.1 Albumin 5.0 Globulin 3.1 Albumin/Globulin Ratio 1.6 Lipase 82 H Blood Type B POSITIVE Antibody Screen NEGATIVE - Rads (name of study) CT abdomen and pelvis shows diverticulosis and fatty liver Radiology: EMP read contemporaneously PD MEDICAL DECISION MAKING - ED course ED course: 51-year-old gentleman with relatively stable lower GI bleed, H&H is stable from a little over a week ago and normal values. No active bleeding when he is not stooling. He requested CT scanning which showed diverticula and hepatic steatosis without other findings. He is already planning a colonoscopy. Departure - Departure Disposition: 01 Home, Self Care Clinical Impression: Lower GI bleed Condition: Good Record reviewed to determine appropriate education?: Yes Instructions: ED Hematochezia Stable Prescriptions: Omeprazole 40 mg PO DAILY #30 cap Comments: As discussed, my suspicion is that your lower GI bleeding is likely from the diverticula. Since you do not have diverticulitis, you can probably safely stop the antibiotics. Return for new or worsening symptoms. Follow through with your PCPs recommendation to schedule colonoscopy as was already planned.
[2021-09-26] MEDS ORDERED: IOVERSOL 320 100 ML VIAL IVP ONE ×2 (17:35→19:00)
--- NOTE | 2021-09-26 18:44 | CT Report ---
PROCEDURE: Abdomen/Pelvis W INDICATIONS: IV only LGI bleed TECHNIQUE: After the administration of contrast, 5 mm thick sections acquired from the diaphragms to the sym physis. 5 mm thick coronal and sagittal reformats were acquired. For radiation dose reduction, the following was used: automated exposure control, adjustment of mA and/or kV according to patient size . COMPARISON: October 28, 2014. FINDINGS: Image quality: Excellent. ABDOMEN: Lung bases: Lung bases are clear. Heart size is normal. Solid organs: Liver: The liver has low density consistent with hepatic steatosis. No intrahepatic biliary ductal di latation or mass. The portal vein and hepatic veins are patent. Biliary: The gallbladder has no gallstones, pericholecystic fluid, gallbladder wall thickening, or nicole rrounding inflammatory change. [] Pancreas: The pancreas has no mass or ductal dilatation. No surrounding inflammation. Spleen: Normal size. No mass. Adrenal glands: No hypertrophy or nodules. Kidneys: No obstructive calculus or hydronephrosis. No solid mass. No cystic mass. Bowel: The distal esophagus and stomach are normal. The small bowel has a normal caliber and appeara nce. The terminal ileum is normal. There is diverticulosis without evidence of diverticulitis. Free air/free fluid: No free air or free fluid. Abdominal wall: No abdominal wall mass or hernia. Retroperitoneum: No retroperitoneal or mesenteric adenopathy by size criteria. Aorta and inferior ve na cava are normal in size. Lymph nodes: No adenopathy. Bones: No suspicious bony lesions. No vertebral body compression fractures. Degenerative disc diseas e at L5-S1. PELVIS: Genitourinary: Bladder wall thickness is normal. Miscellaneous: No inguinal hernias or adenopathy. IMPRESSION: 1. No acute abdominal or pelvic abnormality. 2. Hepatic steatosis. 3. Diverticulosis without evidence of diverticulitis. Reviewed by: Edwin Reyes on 09/26/2021 6:43 PM PDT Approved by: Edwin Reyes on 09/26/2021 6:43 PM PDT Station ID: [id number]
[2021-09-26 19:10] VITALS: BP 118/81
== END 2021-09-26 19:45 | disposition home or self-care (01) ==
LOC: ED 11:37
DX: K92.2 Gastrointestinal hemorrhage, unspecified (principal)
CPT/HCPCS: 36415; 74177; 80053; 83690; 85025; 86850; 86900; 86901; 99283; 99284; Q9967